=== PATIENT | female | born 1940 | race Caucasian/White ===

== ENCOUNTER 2019-10-13 09:03 | Inpatient (IN) | payer MEDICARE ==
[~2019-10-13] VITALS: Ht 152.4 cm; Wt 40.8 kg
[2019-10-13] MEDS ORDERED: ONDANSETRON HCL INJ 2MG/ML 2ML 2 MG/ML VIAL IV STA (09:20)
[2019-10-13] MEDS ORDERED: ONDANSETRON HCL 4 MG ORAL DISINTEGRATING TAB ONE (09:26)
[2019-10-13] MEDS ORDERED: FAMOTIDINE 20 MG/2 ML VIAL IV STA (09:49)
[2019-10-13 09:57] LABS: BASOPHILS % 0.2 % (0.0-1.0); EOSINOPHILS # (AUTO) 0.1 (0.0-0.4); EOSINOPHILS % 0.6 % (0.0-6.0); HEMATOCRIT 38.2 % (34.2-44.1); HEMOGLOBIN 11.9 g/dL (12.0-16.0); LYMPHOCYTES # (AUTO) 1.9 (1.0-3.2); LYMPHOCYTES % 10.3 % (18.0-39.1); MEAN CORPUSCULAR HGB CONC 31.2 g/dL (31-35); MEAN CORPUSCULAR VOLUME 93.2 fL (81-99); MONOCYTES # (AUTO) 1.5 (0.2-0.8); MONOCYTES % 8.3 % (4.4-11.3); NEUTROPHILS # (AUTO) 14.9 (2.1-6.9); PLATELET COUNT 344 x10e3/uL (140-360); RED CELL DISTRIBUTION WIDTH 14.4 % (11.7-14.4)
[2019-10-13 10:18] LABS: ALANINE AMINOTRANSFERASE 8 IU/L (0-55); ALBUMIN/GLOBULIN RATIO 0.9 (0.8-2.0); ALKALINE PHOSPHATASE 114 IU/L (40-150); ANION GAP 17.1 mmol/L (8-16); BLOOD UREA NITROGEN 20 mg/dL (7-26); BUN/CREATININE RATIO 27 (6-25); CALCIUM 9.4 mg/dL (8.4-10.2); CARBON DIOXIDE 23 mmol/L (22-29); CHLORIDE 100 mmol/L (98-107); CREATININE, SERUM 0.74 mg/dL (0.57-1.11); EST GLOMERULAR FILTRATION RATE > 60 ML/MIN (60-); GLUCOSE 150 mg/dL (74-118); POTASSIUM 4.1 mmol/L (3.5-5.1); SODIUM 136 mmol/L (136-145)
--- NOTE | 2019-10-13 10:50 | Diagnostic Imaging Report ---
Abdomen, 1 view, with upright chest. History: Epigastric and chest pain. Findings: Cardiac silhouette and pulmonary vessels are normal. Linear opacities are present at the lung bases. A rounded lucency is present in the retrocardiac region with contrast. There appears to be air filled dilatation of the esophagus. Surgical clips are noted in the left region. Right humeral neck fracture is partially visualized. Air is scattered throughout nondilated small and large bowel. There are no air-fluid levels. There is no evidence of free air. There are no masses or abnormal calcifications. The osseous structures are intact. IMPRESSION: 1. Bibasilar atelectasis. 2. Air-filled dilated esophagus with retained contrast. Distal esophageal partial obstruction or hernia may be present. 3. Partially visualized right humeral neck fracture. Signed by: Seth Juarez on 10/13/2019 10:47 AM
[2019-10-13] MEDS ORDERED: SODIUM CHLORIDE 0.9% 1000ML 1,000 ML IV ONE (12:00)
[2019-10-13] MEDS ORDERED: MORPHINE SULFATE 2 MG/ML SYR 1ML IV ONE (15:18)
--- NOTE | 2019-10-13 15:20 | Diagnostic Imaging Report ---
CT scan of the chest with pulmonary embolism protocol. Clinical History: ^Elevated D-Dimer SOB, rule out PE ^[id number] ^1400. Comparison Study: Chest x-ray dated October 13, 2019. Technique: Pre-intravenous contrast localization images were acquired followed by contiguous helical slices through the thorax post administration of intravenous contrast using a timed bolus fashion. This exam was performed according to our department dose optimization program which includes automated exposure control, adjustment of the mA and/or kV according to the patient's size and/or use of iterative reconstruction technique. Findings: There is no evidence of pulmonary embolism. The mediastinum is unremarkable with no suspicious masses or adenopathy. Some dilatation of the pulmonary arteries is noted. There is a moderate hiatal hernia. A trace right pleural effusion is seen. The visualized portions of the upper abdomen demonstrate a 9 mm adrenal adenoma. Diverticulosis is noted. The tracheobronchial tree is clear with no endobronchial lesions. The pulmonary parenchyma demonstrates moderate emphysematous changes. Bibasilar atelectasis or consolidation is seen. Bone windows demonstrate age-indeterminate high-grade compression fracture at L1. Post vertebroplasty changes are seen at T12. Impression: 1. No evidence of pulmonary embolism. 2. Bibasilar atelectasis or consolidation. A trace left pleural effusion is seen. 3. Moderate hiatal hernia. 4. Post vertebroplasty changes at T12 with high-grade compression fracture at L1. 5. Moderate emphysema. Signed by: Mynor Sierra MD on 10/13/2019 3:17 PM
[2019-10-13] MEDS ORDERED: MAGNESIUM/ALUMINUM/SIMETHICONE 30 ML UDC PO ONE (15:30)
[2019-10-13] MEDS ORDERED: SUCRALFATE 1 GM/10 ML SUSP NG ONE (15:30)
[2019-10-13] MEDS ORDERED: LIDOCAINE VISC 2% SOLN 15 ML UDC PO ONE (15:30)
[2019-10-13] MEDS ORDERED: ASPIRIN 81 MG CHEW TAB PO ONE ×2 (15:30→16:30)
[2019-10-13 15:41] LABS: CREATINE KINASE MB 3.1 ng/mL (0-5.0)
[2019-10-13] MEDS ORDERED: ENOXAPARIN SODIUM INJ 100 MG/ML SYR SC SCH (16:30)
[2019-10-13] MEDS ORDERED: NITROGLYCERIN 0.4 MG SUBL SL PRN (16:30)
[2019-10-13] MEDS ORDERED: FAMOTIDINE 20 MG TAB PO SCH (16:30)
[2019-10-13] MEDS ORDERED: SODIUM CHLORIDE FLUSH 10 ML SYR INJ PRN (16:30)
[2019-10-13] MEDS ORDERED: METOPROLOL SUCCINATE 25 MG TAB XL PO ONE (16:45)
[2019-10-13] MEDS: FAMOTIDINE 20 MG TAB PO SCH (17:41)
[2019-10-13] MEDS: ENOXAPARIN SOD INJ 40 MG/0.4 ML SYR SC SCH (17:42)
[2019-10-13 18:18] LABS: CLARITY,URINE SL CLOUDY (CLEAR); COLOR,URINE YELLOW (YELLOW); LEUKOCYTE ESTERASE ,URINE NEGATIVE (NEGATIVE); NITRITE,URINE NEGATIVE (NEGATIVE); PROTEIN,URINE DIPSTICK TRACE (NEGATIVE); URINE UROBILINOGEN 0.2 mg/dL (0.2 - 1)
[2019-10-13 18:19] LABS: BILIRUBIN,URINE NEGATIVE (NEGATIVE); KETONES,URINE NEGATIVE (NEGATIVE)
[2019-10-13] MEDS ORDERED: SODIUM CHLORIDE 0.9% 50ML 50 ML ONE (18:20)
[2019-10-13] MEDS ORDERED: IOPAMIDOL 370 MG/ML 200 ML INFUS..BTL INJ ONE (18:20)
[2019-10-13 18:37] LABS: BACTERIA,URINE FEW /HPF; EPITHELIAL CELLS,URINE MODERATE /LPF
[2019-10-13 18:43] LABS: CREATINE KINASE MB 5.2 ng/mL (0-5.0)
--- NOTE | 2019-10-13 19:27 | NUR ---
dr hernandez rounding on patient, discussed rising of troponin to 1.16 with md, no further orders at this time, patient in no distress
[2019-10-13] MEDS ORDERED: ATORVASTATIN 20 MG TAB PO SCH (19:45)
[2019-10-13] MEDS: ATORVASTATIN 40 MG TAB PO SCH (20:42)
[2019-10-13] MEDS: METOPROLOL TARTRATE 25 MG TAB PO SCH (20:42)
--- NOTE | 2019-10-13 21:44 | Consultation ---
DATE OF CONSULTATION: 10/13/2019 Cardiology Consultation CONSULTING PHYSICIAN: David Hill MD, Interventional Cardiology. REASON FOR CONSULTATION: Non-STEMI. HISTORY OF PRESENT ILLNESS: Ms. Parkinson is a 79-year-old woman with history of diabetes mellitus, COPD, cachexia, history of lip cancer status post tumor resection, and status post T12 level kyphoplasty two days ago, history of hiatal hernia, history of carotid disease status post left carotid endarterectomy, presents with chest discomfort since yesterday, constant, which she attributes to her usual symptoms from hiatal hernia. She has had recurrent previous episodes. Her EKG shows sinus rhythm, nonspecific repolarization abnormality. Her serial cardiac biomarkers, however, demonstrate troponin of 0.45 and then 1.16, ruling her in for non-STEMI. D-dimer was significantly elevated and a CT chest was performed and negative for pulmonary embolism. It did show bibasilar atelectasis or consolidation, trace left pleural effusion, moderate hiatal hernia, and post vertebroplasty changes to T12 with high-grade compression fracture at L1 and there are moderate emphysematous changes. There is also a 9-mm adrenal adenoma and diverticulosis noted. She reports previous coronary angiograms without significant obstructive disease. REVIEW OF SYSTEMS: A 12-system review is negative except for as noted above. ALLERGIES: TO TRAMADOL. PAST MEDICAL HISTORY: As per HPI. SOCIAL HISTORY: History of smoking, remote. No alcohol. No drugs. FAMILY HISTORY: Noncontributory. PHYSICAL EXAMINATION: VITAL SIGNS: Temperature 97.8, heart rate 95, respiratory rate 20, blood pressure 128/95, and O2 saturation 96%. GENERAL: In no acute distress, alert. NECK: No JVD. No carotid bruit. Left carotid endarterectomy scar. CHEST: With scattered rhonchi. CARDIOVASCULAR: Regular rate and rhythm. Normal S1, S2. No S3 or S4. No murmurs, no rubs. ABDOMEN: Soft and nontender. Bowel sounds positive. EXTREMITIES: No edema. Warm distal extremities. Cachectic. Frail-appearing, chronically ill-appearing. CARDIOVASCULAR MEDICATIONS: Reviewed. Lovenox 40 mg subcu q.12 hours, aspirin 81 mg daily, nitroglycerin 0.4 mg p.r.n.. STUDIES: Reviewed. White blood cells 18.6, hemoglobin 11.9, platelets 344. D-dimer 1260, peak troponin 1.16, CK-MB 5.2, CK 43. Sodium 136, potassium 4.1, chloride 100, bicarbonate 23, BUN 20, creatinine 0.7, total protein 6.4, albumin 3. ASSESSMENT AND PLAN: 1. A 79-year-old woman presents with non-ST elevation myocardial infarction, status post recent kyphoplasty. History of chronic obstructive pulmonary disease, hypertension, carotid disease status post left carotid endarterectomy, and diabetes mellitus, history of hiatal hernia. Has atypical chest pain described as worse with deep inspiration. Chronic recurrent onset since yesterday a.m. Recommend continue aspirin and Lovenox therapy. 2. Add statin. 3. Add low-dose beta-kateryna. 4. Discussed indications, alternatives, risks, and benefits for coronary angiography and possible intervention. Plan for angiographic assessment prior to discharge. We will confirm label fuser tender availability tomorrow a.m. and provide further recommendations. Obtain echocardiogram. Thank you for the opportunity to participate in the care Ms. Parkinson. MD LUCIA Mclean/JOHN /[id number]
[2019-10-13 23:32] VITALS: BP 118/81
[2019-10-13 23:48] VITALS: BP 111/65
[2019-10-14] VITALS (7 sets, daily range): BP systolic 108–125; BP diastolic 60–66
[2019-10-14] MEDS: MORPHINE SULFATE 2 MG/ML SYR 1ML IV PRN ×4 (00:05→22:34)
[2019-10-14] MEDS: DEXTROSE 5%/0.45% SOD CHL 1,000 ML IV SCH (00:52)
[2019-10-14 01:00] LABS: CREATINE KINASE MB 4.6 ng/mL (0-5.0)
--- NOTE | 2019-10-14 03:05 | NUR ---
TROPONIN LEVEL OF 1.130 WAS REPORTED BY LAB AT 0114. DR. PRIETO WAS CALLED TROUGH THE ANSWERING SERVICE TO REPORT VALUE AT 0121. THE HAS NOT CALLED BACK. I DID NOT CALL AGAIN HE WAS ALREADY AWARE OF PREVIOUS RESULT OF 1.165 EARLIER. PATIENT IS LAYING COMFORTABLY, IN NO DISTRESS. TELEMETRY IN PLACE, CURRENTLY SR.
[2019-10-14] MEDS ORDERED: ASPIR 8181 MG (04:44)
[2019-10-14] MEDS ORDERED: LEVOTHYROXINE75 MCG PO (04:44)
[2019-10-14] MEDS ORDERED: MULTIVITAMINS1 EAC7 (04:44)
[2019-10-14] MEDS ORDERED: PREDNISONE5 MG (04:44)
[2019-10-14] MEDS ORDERED: AMLODIPINE BESY10 MG PO (04:44)
[2019-10-14] MEDS ORDERED: LISINOPRIL40 MG (04:44)
[2019-10-14] MEDS ORDERED: ATORVASTATIN CA20 MG PO (04:44)
--- NOTE | 2019-10-14 05:16 | History and Physical ---
CHIEF COMPLAINT: Chest pain. HISTORY OF PRESENT ILLNESS: 79-year-old lady, who presented to the emergency room department complaining of chest pain of 1 day duration, quite constant, which she thought was related to her hiatal hernia. The patient has been somewhat nauseated. No vomiting. She denies shortness of breath. She has lost some weight. There is no history of rectal bleeding. No changes in bowel habits. No constipation. No diarrhea. The patient was noted to have positive cardiac biomarkers, which showed elevated troponin values which did go up from 0.5 to 1.16. Pulmonary embolism was ruled out and Cardiology consultation has been requested. The patient was noted to have elevated d-dimer. 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 Stated that flap from right thigh was used as a graft for reconstruction. Denies history of myocardial infarction. No cerebrovascular accident. No history of compulsive disorders. There is a history of osteoporosis and thyroiditis. History of hypertension PAST SURGICAL HISTORY: Previous left carotid endarterectomy, previous kyphoplasty done at T12. FAMILY HISTORY: No family history of gallbladder or hypertension Home medications: Aspirin, amlodipine, atorvastatin, levothyroxine, lisinopril, prednisone, multivitamins SOCIAL HISTORY: History of smoking. No alcohol or drug use. ALLERGIES: ALLERGIC TO TRAMADOL. REVIEW OF SYSTEMS: Except from what was mentioned above, 12-system review was essentially negative. PHYSICAL EXAMINATION: GENERAL: The patient appeared to be in no distress. VITAL SIGNS: Blood pressure 128/95, temperature 97.8, heart rate 95, respirations 20, and O2 saturation 96%. Physical examination: Patient alert oriented person time place. The patient was in no distress. The patient does not look well-nourished. Fragile elderly HEENT: No gross abnormalities Neck: Supple no JVD Lungs: Clear to auscultation Heart: Regular rate and rhythm, no murmurs no gallops Abdomen: Soft non tender, no guarding. Extremities: No edema Neurologic: Alert oriented 3, no focal weakness. Psychiatrist: Normal mood, normal judgment. Skin: No rashes LABORATORY DATA: Hemoglobin 11.9, white blood cell count 18.6, platelet count 344,000. D-dimer 1260. Troponins 1.16. Sodium 136, potassium 4.1, chloride 100, BUN 20, and creatinine 0.7. EKG demonstrated no acute process. No acute ischemia. Normal sinus rhythm. Rate 71. Nonspecific ST segment/T wave abnormalities. Normal QT and QT interval CT scan of the chest Impression: 1. No evidence of pulmonary embolism. 2. Bibasilar atelectasis or consolidation. A trace left pleural effusion is seen. 3. Moderate hiatal hernia. 4. Post vertebroplasty changes at T12 with high-grade compression fracture at L1. 5. Moderate emphysema. KUB: MPRESSION: 1. Bibasilar atelectasis. 2. Air-filled dilated esophagus with retained contrast. Distal esophageal partial obstruction or hernia may be present. 3. Partially visualized right humeral neck fracture. ASSESSMENT: 1. Chest pain in the patient with elevated troponin values. The patient has been admitted with an impression of non-ST segment elevation myocardial infarction. 2. Acute gastritis. No alcohol gastritis or hemorrhagic gastritis. 3. Hiatal hernia. 4. History of hypertension 5. Right humeral neck fracture, partially visualized 6. Leukocytosis 7. Status post left carotid endarterectomy. 8. Status post kyphoplasty. 9. History of COPD PLAN OF CARE: The patient will be admitted for further evaluation and treatment. Cardiology recommendations noted. Small doses of beta-blockers have been ordered. Patient placed on Lovenox. Angiogram is being planned Consult GI for evaluation. Consulted. Pertaining questionable right humeral neck fracture MD ANTONY Saucedo/JOHN /[id number] MOUNA
[2019-10-14] MEDS: ENOXAPARIN SOD INJ 40 MG/0.4 ML SYR SC SCH ×3 (05:35→18:00)
[2019-10-14 05:42] LABS: BASOPHILS % 0.2 % (0.0-1.0); EOSINOPHILS # (AUTO) 0.1 (0.0-0.4); EOSINOPHILS % 0.5 % (0.0-6.0); HEMATOCRIT 35.9 % (34.2-44.1); LYMPHOCYTES # (AUTO) 2.1 (1.0-3.2); LYMPHOCYTES % 11.7 % (18.0-39.1); MEAN CORPUSCULAR HEMOGLOBIN 28.9 pg (28-32); MEAN CORPUSCULAR HGB CONC 30.6 g/dL (31-35); MEAN CORPUSCULAR VOLUME 94.2 fL (81-99); MONOCYTES # (AUTO) 1.8 (0.2-0.8); NEUTROPHILS # (AUTO) 13.8 (2.1-6.9); PLATELET COUNT 308 x10e3/uL (140-360); RED BLOOD COUNT 3.81 x10e6/uL (3.6-5.1); RED CELL DISTRIBUTION WIDTH 14.3 % (11.7-14.4)
[2019-10-14 05:53] LABS: INR 0.98; PROTHROMBIN TIME 13.5 seconds (11.9-14.5)
[2019-10-14 05:54] LABS: PARTIAL THROMBOPLASTIN TIME 38.3 seconds (23.8-35.5)
[2019-10-14 06:04] LABS: ANION GAP 14.5 mmol/L (8-16); BLOOD UREA NITROGEN 16 mg/dL (7-26); BUN/CREATININE RATIO 21 (6-25); CARBON DIOXIDE 24 mmol/L (22-29); CHLORIDE 101 mmol/L (98-107); CHOL/HDL RATIO 5.1 (3.0-3.6); CHOLESTEROL 167 MD/DL (0-199); CREATININE, SERUM 0.76 mg/dL (0.57-1.11); EST GLOMERULAR FILTRATION RATE > 60 ML/MIN (60-); GLUCOSE 166 mg/dL (74-118); HDL CHOLESTEROL 33 MG/DL (40-60); LDL CHOLESTEROL 88 MG/DL (60-130); MAGNESIUM 1.3 MG/DL (1.3-2.1); PHOSPHORUS 2.5 MG/DL (2.3-4.7); POTASSIUM 4.5 mmol/L (3.5-5.1); SODIUM 135 mmol/L (136-145); TRIGLYCERIDES 229 MG/DL (0-149)
--- NOTE | 2019-10-14 07:07 | NUR ---
Dr. Reed just returned the call I placed to report the troponin level. He order to let the patient have breakfast this morning and then keep her NPO afterwards with current fluid rate. To consent the patient for a coronary stent and other necessary procedures.
--- NOTE | 2019-10-14 07:10 | NUR ---
RCD PT AT BED PT IS ALERT AND ORIENTED PT RESTING ON BED IV PATENT BY SALINE FLUSH BED LOW AND LOCKED CALL LIGHT IN REACH
[2019-10-14] MEDS: FAMOTIDINE 20 MG TAB PO SCH ×2 (07:30→16:30)
[2019-10-14] MEDS: METOPROLOL TARTRATE 25 MG TAB PO SCH ×2 (07:45→19:45)
[2019-10-14 08:20] LABS: CREATINE KINASE MB 3.7 ng/mL (0-5.0)
--- NOTE | 2019-10-14 08:30 | NUR ---
PT NPO FOR PROCEDURE
[2019-10-14] MEDS ORDERED: ASPIRIN 81 MG ENTERIC COATED PO SCH (09:00)
--- NOTE | 2019-10-14 10:00 | NUR ---
PT SAID SHE CAN SIGN THE CONSENT AFTER TALKING TO THE DOCTOR PAGED AND NOTIFIED DR SWEENEY HE SAID HE COMING TO SEE THE PT
[2019-10-14] MEDS: ONDANSETRON HCL INJ 2MG/ML 2ML 2 MG/ML VIAL IV PRN ×2 (14:34→22:34)
--- NOTE | 2019-10-14 15:39 | NUR ---
Nutrition Intervention Note RD Recommendation(s) for Physician: -Advance diet when medically appropriate -Glucerna daily for added nutrition The patient meets criteria for unspecified SEVERE protein-calorie malnutrition. Plan of Care: RD following, monitoring for tolerance and adequacy Nutrition reason for involvement: MST RD Assessment (10/14/19) Pt is a 79 year old female admitted with elevated troponin and leukocytosis. Pt is currently NPO. Pt stated her appetite has been down and eating <50% of meals for the past 2 weeks. Pt also reports a 15 lb wt loss in the past 3-4 months and used to weigh 105 lbs. Pt currently has a wt of 90 lbs in chart. If accurate, this would be a 14% wt loss in 3-4 months severe wt loss. No N/V/D/C reported at this time. Pt also mentioned she drinks a nutrition supplement drink daily at home and eats soft vegetables and pureed meats. Pt was interested in receiving a nutrition supplement drink daily during admission. Will continue to monitor Principal Problems/Diagnoses: elevated troponin, leukocytosis PMH: diabetes, COPD, cachexia, tongue cancer, hiatal hernia, and carotid disease GI: soft, non-tender, abdomen, BM unknown Skin: no pressure ulcers noted Labs: (10/14/19) Na 135, Glu 166 Meds: zofran, metroprolol, pepcid, lovenox, lipitor Ht: 60 inches Wt: 90 lbs BMI: 17.6 kg/m2 IBW: 106 lbs Malnutrition Evaluation (10/14/19) The patient meets criteria for unspecified SEVERE protein-calorie malnutrition. Energy intake: <50% of estimated energy requirements for >5 days Weight loss: >7.5% in 3 months (Chronic) Muscle loss: Moderate clavicle region Supporting Evidence: Fluid accumulation: no accumulation identified Functional Status: unable to evaluate Nutrition Prescription (Diet Order): NPO Estimated Nutritional Needs: 9046-0520 calories/day (30-35 kcal/kg CBW) 61-82 g protein/day (1.5-2 g pro/kg CBW) Diet Adequacy: Pt is NPO Tolerance: Pt is NPO Diet Education Needs Assessment: Diet education is not indicated at this time Nutrition Care Level: high Nutrition Diagnosis: Severe protein kcal malnutrition related to chronic illness as evidenced by pt meeting <50% of energy needs for > 5 days, >7.5% weight loss in 3 months, and moderate muscle depletion. Goal: Patient will meet 75-100% of estimated needs by follow up Progress: N/A Interventions: Commercial beverage Monitoring/Evaluation: -Total energy intake, Total protein intake, Liquid supplement, Weight change Signed: Yecenia Taylor RD, LD
[2019-10-14] MEDS ORDERED: HEPARIN SOD (PORCINE) 1000 UNIT/ML 30ML ONE (15:51)
[2019-10-14] MEDS ORDERED: MIDAZOLAM HCL 2 MG/2 ML VIAL ONE (15:51)
[2019-10-14] MEDS ORDERED: FENTANYL CITRATE/PF 100MCG/2 ML INJ ONE (15:52)
[2019-10-14] MEDS ORDERED: HEPARIN SOD/SOD CHLORIDE 0 ML ONE (15:52)
[2019-10-14] MEDS ORDERED: IOPAMIDOL 370 MG/ML 200 ML INFUS..BTL INJ ONE (15:52)
[2019-10-14] MEDS ORDERED: LIDOCAINE HCL 2% LOCAL 20 ML VIAL ONE (15:52)
[2019-10-14] MEDS ORDERED: SODIUM CHLORIDE 0.9% 1000ML 0 ML ONE (15:53)
[2019-10-14] MEDS ORDERED: VERAPAMIL HCL 2.5 MG/ML 2 ML VIAL ONE (15:58)
[2019-10-14] MEDS ORDERED: NITROGLYCERIN/D5W 200 MCG/ML 250 ML ONE (15:58)
--- NOTE | 2019-10-14 16:10 | NUR ---
PT WENT TO THE PROCEDURE THEN PT REFUSED THE PROCEDURE DR SWEENEY EXPLAINED THE COMPLICATIONS IF NOT DOING THE PROCEDURE PT SAID NO
--- NOTE | 2019-10-14 17:00 | NUR ---
DR SWEENEY WANTED TO TRANSFER THE PT TO HER [facility] ,NOTIFIED THE CHARGE NURSE AND [employer]AM[employer] EXPERT CHARGE NURSE PAGED AND TALKED TO THE ANSWERING SERVICE THEY SAID THE ONCALL DR ONTIVEROS RETURNED THE CALL
--- NOTE | 2019-10-14 17:00 | NUR ---
DR CHAVARRIA EXPLAINED TO THE PT AND FAMILY REGARDING INCREASED CARDIAC ENZYME ,ECHO REPORT AND THE COMPLICATIONS TO DISCHARGE WITHOUT DOING THE PROCEDURE [facility] THEY REFUSED TO DO THE PROCEDURE
--- NOTE | 2019-10-14 19:14 | NUR ---
PT RESTING ON BED BED SIDE REPORT GIVEN TO ONCOMING NURSE
--- NOTE | 2019-10-14 19:20 | NUR ---
Received bedside report from day nurse. Informed of situation regarding patient refusing prosthetics lab technician procedure today because she would prefer her primary type photography supervisor, Dr. Eddie Dominguez, to take care of her. Patient's family aware of situation and was here to speak with patient. Patient still refusing. Contacted Dr. Dominguez and spoke with on-call provider, Dr. Montes De Oca. Informed him of situation and patient's elevated troponin. Dr. Montes De Oca said he will speak with Dr. Dominguez about possible transfer to [facility] and call back. Awaiting return call at this time. Patient currently resting in bed, no s/s of distress or c/o pain at this time. All safety measures in place. Will continue to monitor.
--- NOTE | 2019-10-14 19:42 | NUR ---
Received return call from Dr. Montes De Oca, the on-call provider for Dr. Eddie Dominguez, patient's primary and preferred blasting helper. Informed by Dr. Montes De Oca that Dr. Dominguez is aware of situation and is okay with accepting patient at [facility]. Called medical housekeeper to initiate transfer process. Dr. Shakira Bruce here to see patient. Patient still resting in bed, no s/s of distress at this time. All safety measures in place. Will continue to monitor.
--- NOTE | 2019-10-14 19:43 | NUR ---
Per Dr. Shakira Bruce, patient okay to transfer to [facility].
[2019-10-14] MEDS: ATORVASTATIN 40 MG TAB PO SCH (21:04)
--- NOTE | 2019-10-14 21:13 | NUR ---
Per housekeeper home, no bed is available at [facility]. Paged Dr. Rosenberg and Dr. Reed to inform them of situation. Awaiting return call. Patient informed of situation. In stable condition, no s/s of distress at this time. All safety measures in place. Will continue to monitor.
--- NOTE | 2019-10-14 21:22 | NUR ---
Informed Dr. Rosenberg regarding no bed being available at [facility]. Received orders to consult Dr. Kapoor for right shoulder fracture. Patient in stable condition, resting in bed, no s/s of distress at this time. All safety measures in place. Will continue to monitor.
--- NOTE | 2019-10-14 21:39 | Progress Note ---
DATE: 10/14/2019 Cardiology Progress Note SUBJECTIVE: Adrienne continues to have bouts of intermittent chest discomfort. She has been advised she had a vjr-IW-[id number] myocardial infarction, and that her echocardiogram is severely abnormal with left ventricular ejection fraction of less than 20% and regional wall motion abnormalities involving septal, lateral and anterior faulkner of the mid LV as well as all apical segments with akinesis of the segments. She has a previous echocardiogram several years ago, which at that time was reported as preserved left ventricular systolic function. Coronary angiogram and left heart catheterization with possible coronary intervention have been discussed with the patient on multiple occasions. The patient strongly encouraged to proceed with this, however, she wants to avoid proceeding. Indications, alternatives, risks, and benefits have been discussed with the patient in presence of kiln labourer staff as well as with nursing staff. The patient voices understanding of increased risk of , worsening condition, heart attack and worsening heart failure and other potential risks. The patient voices understanding. However, she is adamant. She would like to follow up with her own watch assembler. I have told her this is in my opinion unsafe for her to discharge given her severe abnormal findings and have instead advised as an alternative to consider a lateral transfer if she is able to obtain acceptance of transfer from her own watch assembler. OBJECTIVE: VITAL SIGNS: Temperature 98.4, heart rate 77, respiratory rate 20, blood pressure 125/66, O2 saturation 97% on 2 L/minute nasal cannula. GENERAL: No acute distress. Cachectic, chronically ill-appearing. HEENT: Has slurred speech related to previous head and neck cancer surgery. NECK: No JVD. Has carotid endarterectomy scar. CHEST: Clear to auscultation. CARDIOVASCULAR: Regular rate and rhythm. Normal S1, S2. Systolic ejection murmur. ABDOMEN: Soft, nontender. EXTREMITIES: No edema. Warm distal extremities. CARDIOVASCULAR MEDICATIONS: Lovenox 40 mg subcu every 12 hours, aspirin 81 mg daily, metoprolol tartrate 12.5 mg every 12 hours, atorvastatin 40 mg at bedtime, and nitroglycerin p.r.n. STUDIES: Reviewed. White blood cells 17.8, hemoglobin 11, platelets 308. PT 13.5, INR 0.98, PTT 38.3. D-dimer was elevated initially on yesterday's labs. Sodium 135, potassium 4.5, chloride 101, bicarbonate 24, BUN 16, creatinine 0.76, glucose 166, calcium 9, magnesium 1.3 to be repleted, phosphorus 2.5. Troponin I trend has been downwards today. Peak troponin was 1.165 with a peak CK-MB of 5.2. Her a.m. labs today include a CK of 39, CK-MB of 3.7, and troponin I of 0.998. Triglycerides 229, total cholesterol 167, LDL 88, HDL 33. ASSESSMENT AND PLAN: 1. A 79-year-old woman presents with [id number] myocardial infarction, acute severe systolic heart failure with regional wall motion abnormalities concerning for left main and/or LAD disease/multivessel disease versus takotsubo cardiomyopathy. 2. Cachexia and frailty. 3. The patient is status post recent kyphoplasty. 4. Chronic obstructive pulmonary disease. 5. Hypertension. 6. Carotid artery disease, status post left carotid endarterectomy. 7. Diabetes mellitus. 8. History of hiatal hernia. RECOMMENDATIONS: Coronary angiography and possible intervention. Continue current cardiovascular medications. The patient declines coronary angiography and intervention as described above. Continue current medical management and I have advised on lateral transfer if the patient is able to get acceptance from her outpatient treating watch assembler, which she would like to follow up with for further decisions including possible invasive assessment. Risk of and morbidity have been discussed. MD LUCIA Mclean/JOHN /[id number]
--- NOTE | 2019-10-14 22:10 | NUR ---
Called Dr. Kapoor's office to inform him of routine consult for right shoulder fracture. Informed that Dr. Kapoor will see patient tomorrow morning.
--- NOTE | 2019-10-14 22:21 | NUR ---
Spoke with Dr. Montes De Oca, the on-call provider for Dr. Gregg Dominguez, patient's primary and preferred pleating machine operator, regarding inability to transfer patient to [facility] due to no bed being available at this time. Per Dr. Montes De Oca, have Dr. Reed call Dr. Dominguez's office in the morning to discuss further plans. Per Dr. Montes De Oca, their office will also be in touch with patient and family to discuss further plans. Patient in stable condition at this time, no s/s of distress. All safety measures in place. Will continue to monitor.
[2019-10-15] VITALS (11 sets, daily range): BP systolic 101–142; BP diastolic 61–86
--- NOTE | 2019-10-15 00:19 | Progress Note ---
DATE: 10/14/2019 SUBJECTIVE: The patient was doing fine. The patient has been in no distress. She still having some discomfort on the chest. The patient has been advised about need to have a cardiac catheterization, however, she would like to be transferred to the hospital for Cardiology . OBJECTIVE: GENERAL: The patient is alert and oriented to person, time, and place. The patient is in no distress. VITAL SIGNS: Stable vital signs. Blood pressure 116/63, respirations 24, pulse 84, temperature 97.3. HEENT: Normocephalic and atraumatic. NECK: Supple. No JVD. . LUNGS: Clear to auscultation. CARDIOVASCULAR: Regular rate and rhythm. ABDOMEN: Soft and nontender. EXTREMITIES: No edema. NEURO: Nonfocal. LABORATORY DATA: CBC reveal hemoglobin 11.9, white blood cell count 18.62, platelet count 344,000. Chemistry profile reveal sodium 135, potassium 4.5, chloride 101, CO2 24, BUN 16, creatinine 0.76. Laboratory data noted. Triglycerides 229, cholesterol 167, troponin value 0.998. ASSESSMENT: 1. Chest pain with elevated troponin values. As per EKG, the patient does have non-ST segment elevation myocardial infarction. 2. . 3. Right humeral neck fracture. 4. Leukocytosis. 5. Status post left carotid endarterectomy. 6. Status post kyphoplasty. 7. History of chronic obstructive pulmonary disease. PLAN OF CARE: Continue present care, consult Orthopedics pertaining to right humeral neck fracture. MD ANTONY Saucedo/JOHN /[id number]
--- NOTE | 2019-10-15 01:09 | NUR ---
Spoke with Dr. Reed and let him know that an attempt was made to transfer patient to [facility], but no bed is available. Informed him that patient's primary supervisor cured meats, Dr. Gregg Dominguez, will be in touch tomorrow morning to discuss further plan of care. Dr. Reed says that there is nothing else to discuss at this point since patient is refusing heart cath procedure. Dr. Montes De Oca, on-call provider for Dr. Dominguez, says they will discuss with patient and family. Patient was complaining of mild chest pain earlier, alleviated with PRN morphine and Zofran. No other s/s of distress noted otherwise at this time. All safety measures in place. Will continue to monitor.
[2019-10-15] MEDS: MORPHINE SULFATE 2 MG/ML SYR 1ML IV PRN ×4 (04:05→18:36)
[2019-10-15] MEDS: ONDANSETRON HCL INJ 2MG/ML 2ML 2 MG/ML VIAL IV PRN (04:05)
--- NOTE | 2019-10-15 04:20 | NUR ---
Patient says that she would like to go ahead and have procedure done here by Dr. Reed. Placed patient on NPO diet. Patient confirms that she has not had anything to eat or drink since midnight. Paged Dr. Reed to let him know. Awaiting return call. Patient resting in bed, no s/s of distress at this time. All safety measures in place. Will continue to monitor.
[2019-10-15] MEDS: ENOXAPARIN SOD INJ 40 MG/0.4 ML SYR SC SCH ×3 (05:34→19:03)
--- NOTE | 2019-10-15 05:56 | NUR ---
Informed Dr. Reed that patient would like to go ahead with procedure. Per Dr. Reed, hold Lovenox and put patient on schedule. Patient resting in bed, no s/s of distress at this time. All safety measures in place. Will continue to monitor.
[2019-10-15] MEDS: DEXTROSE 5%/0.45% SOD CHL 1,000 ML IV SCH ×2 (06:06→14:49)
--- NOTE | 2019-10-15 06:12 | NUR ---
Per patient request, called daughter and let her know about scheduled procedure.
--- NOTE | 2019-10-15 07:13 | NUR ---
Bedside report given to oncoming nurse. Patient awake and resting in bed, no s/s of distress at this time. All safety measures in place.
[2019-10-15] MEDS ORDERED: VERAPAMIL HCL 2.5 MG/ML 2 ML VIAL ONE (08:36)
[2019-10-15] MEDS ORDERED: HEPARIN SOD (PORCINE) 1000 UNIT/ML 30ML ONE (08:36)
[2019-10-15] MEDS ORDERED: LIDOCAINE HCL 2% LOCAL 20 ML VIAL ONE (08:37)
[2019-10-15] MEDS ORDERED: MIDAZOLAM HCL 2 MG/2 ML VIAL ONE (08:37)
[2019-10-15] MEDS ORDERED: FENTANYL CITRATE/PF 100MCG/2 ML INJ ONE (08:37)
[2019-10-15] MEDS ORDERED: NITROGLYCERIN/D5W 200 MCG/ML 250 ML ONE (08:38)
[2019-10-15] MEDS ORDERED: HEPARIN SOD/SOD CHLORIDE 2,000 ML ONE (08:38)
[2019-10-15] MEDS ORDERED: IOPAMIDOL 370 MG/ML 200 ML INFUS..BTL INJ ONE (08:38)
--- NOTE | 2019-10-15 08:40 | NUR ---
Pt off unit at this time, escorted to laborer landscape via assistance x3.
[2019-10-15] MEDS ORDERED: ONDANSETRON HCL INJ 2MG/ML 2ML 2 MG/ML VIAL ONE (09:52)
--- NOTE | 2019-10-15 10:30 | NUR ---
Dr. Rosenberg notified regarding pt transfer per Dr. Reed.
--- NOTE | 2019-10-15 10:30 | NUR ---
Spoke to bathhouse attendant Ghassan. States he will initiate the transfer to [facility].
[2019-10-15] MEDS ORDERED: MAGNESIUM SULFATE 2GM/50ML 50 ML IV ONE (11:00)
--- NOTE | 2019-10-15 12:23 | Progress Note ---
DATE: 10/15/2019 Cardiology Progress Note SUBJECTIVE: Intermittent chest pain. No other complaints. OBJECTIVE: VITAL SIGNS: Temperature 96.8, heart rate 80, respiratory rate 18, blood pressure 118/79, and O2 saturation 98% on 2 L/minute nasal cannula. Her body surface area is 1.33 m2. Her BMI 17.6 kg/m2. GENERAL: Cachectic, chronically ill-appearing. HEENT: Moist mucosa with mild deformation of tongue and left lip, chronic from prior history of head and neck cancer. NECK: JVD distended. CHEST: Clear to auscultation. CARDIOVASCULAR: Regular rate and rhythm. Normal S1, S2. No S3 or S4. Systolic ejection murmur. ABDOMEN: Soft, nontender. Bowel sounds positive. EXTREMITIES: No edema. Warm and distal extremities. CARDIOVASCULAR MEDICATIONS: Reviewed. Atorvastatin 40 mg at bedtime, aspirin 81 mg daily, metoprolol tartrate 12.5 mg every 12 hours, Lovenox on hold. Adding Lasix 40 mg daily. STUDIES: Reviewed. White blood cells 17.8, hemoglobin 11, and platelets 308. Sodium 135, potassium 4.5, chloride 101, bicarbonate 24, BUN 16, creatinine 0.7, glucose 132, magnesium 1.3, repleted. Calcium 9. Phosphorus 2.5. Troponin I from yesterday 0.99. CK-MB 3.7 and CK 39. Triglycerides 229, total cholesterol 167, LDL 88, HDL 33. Telemetry, sinus rhythm. ASSESSMENT AND PLAN: 1. Status post coronary angiography today. The patient did finally agree to proceed with this. I was confirmed ostial severe left main disease as well as LAD severe disease, moderate circumflex disease, mild RCA disease. LV-gram consistent with apical ballooning syndrome with regional wall motion abnormalities, more severe and out of proportion to level of coronary artery disease, suggesting concomitant takotsubo cardiomyopathy on top of severe left main and LAD disease. 2. Cachexia and frailty. 3. The patient is status post recent kyphoplasty. 4. Chronic obstructive pulmonary disease. 5. Hypertension. 6. Carotid disease, status post left endarterectomy. 7. Diabetes. 8. History of hiatal hernia. RECOMMEND: 1. Diuretics and replete lytes. 2. Continue anti-platelet agent and statin therapy. 3. Continue low-dose beta-kateryna. 4. Unable to add ELLIE inhibitor, ARB, or ARNI at this point in time given low normal blood pressure reads. 5. The patient would benefit from some nutrition optimization and rehab optimization prior to consideration of surgery. 6. The patient would benefit for surgery evaluation by cardiothoracic surgery for consideration of high risk bypass versus high risk of staged PCI of left main and LAD. The patient prefers care with her outpatient treating accounts payable accountant, who is at [facility]. We will request a higher level of care transfer for further evaluation by Cardiothoracic Surgery. 7. Overall, prognosis is guarded. David Hill MD AFCarlos/MODL /[id number]
--- NOTE | 2019-10-15 12:32 | NUR ---
Pt arrived on unit from tin can laborer via bed, assist x2. A&O x3, resp WNL. R fem site soft on palpation, dressing in place, CDI. Pt has no c/o pain. IV fluids being administered. Down time till 1630, pt aware for need to keep RLE straight.
--- OUTSIDE RECORDS SUMMARY | 2019-10-15 13:55 | XMS REPORT ---
Author Author [facility] Address Unknown Phone Unavailable Care Team Providers Care Orthopedic Specialist Name Role Phone Camila ESTRADA Unavailable Unavailable Problems This patient has no known problems. Allergies, Adverse Reactions, Alerts This patient has no known allergies or adverse reactions. Medications This patient has no known medications. Results Test Description Test Time Test Comments Text Results Atomic Results Result Comments CT CHEST W 2019-10-13 15:09:00 [place] [address] Patient Name: LIBERTAD MIKE MR #: [id number] : 1940 Age/Sex: 79/F Req #: [id number] Adm Physician: Ordered by: TREE ESTRADA MD Report #: [id number] Location: ER Room/Bed: Procedure: [id number] CT/CT CHEST W Exam Date: 10/13/19 Exam Time: 1400 REPORT STATUS: Signed CT scan of the chest with pulmonary embolism protocol. Clinical History: Elevated D-Dimer SOB, rule out PE [id number]. Comparison Study: Chest x-ray dated October 13, 2019. Technique: Pre- intravenous contrast localization images were acquired followed by contiguous helical slices through the thorax post administration of intravenous contrast using a timed bolus fashion. This exam was performed according to our department dose optimization program which includes automated exposure control, adjustment of the mA and/or kV according to the patient's size and/or use of iterative reconstruction technique. Findings: There is no evidence of pulmonary embolism. The mediastinum is unremarkable with no suspicious masses or adenopathy. Some dilatation of the pulmonary arteries is noted. There is a moderate hiatal hernia. A trace right pleural effusion is seen. The visualized portions of the upper abdomen demonstrate a 9 mm adrenal adenoma. Diverticulosis is noted. The tracheobronchial tree is clear with no endobronchial lesions. The pulmonary parenchyma demonstrates moderate emphysematous changes. Bibasilar atelectasis or consolidation is seen. Bone windows demonstrate age-indeterminate high-grade compression fracture at L1. Post vertebroplasty changes are seen at T12. Impression: 1. No evidence of pulmonary embolism. 2. Bibasilar atelectasis or consolidation. A trace left pleural effusion is seen. 3. Moderate hiatal hernia. 4. Post vertebroplasty changes at T12 with high-grade compression fracture at L1. 5. Moderate emphysema. Signed by: Mynor Sierra MD on 10/13/2019 3:17 PM Dictated By: MYNOR SIERRA MD 16 Transcribed By: BRINA on 10/13/191516 COPY TO: TREE ESTRADA MD ABDOMEN ACUTE SERIES W/PA CXR 2019-10-13 10:42:00 [place] [address] Patient Name: LIBERTAD MIKE MR #: [id number] : 1940 Age/Sex: 79/F Req #: [id number] Adm Physician: Ordered by: TREE ESTRADA MD Report #: [id number] Location: ER Room/Bed: Procedure: [id number] DX/ABDOMEN ACUTE SERIES W/PA CXR Exam Date: 10/13/19 Exam Time: 0953 REPORT STATUS: Signed Abdomen, 1 view, with upright chest. History: Epigastric and chest pain. Findings: Cardiac silhouette and pulmonary vessels are normal. Linear opacities are present at the lung bases. A rounded lucency is present in the retrocardiac region with contrast. There appears to be air filled dilatation of the esophagus. Surgical clips are noted in the left region. Right humeral neck fracture is partially visualized. Air is scattered throughout nondilated small and large bowel. There are no air-fluid levels. There is no evidence of free air. There are no masses or abnormal calcifications. The osseous structures are intact. IMPRESSION: 1. Bibasilar atelectasis. 2. Air-filled dilated esophagus with retained contrast. Distal esophageal partial obstruction or hernia may be present. 3. Partially visualized right humeral neck fracture. Signed by: Seth Juarez on 10/13/2019 10:47 AM Dictated By: SETH JUAREZ MD 1047 Transcribed By: BRINA on 10/13/19 1047 COPY TO: TREE ESTRADA MD
--- NOTE | 2019-10-15 14:14 | Operative Report ---
DATE OF PROCEDURE: 10/15/2019 SURGEON: David Hill MD STUDY: Cardiac catheterization. CRIMINAL JUSTICE LAWYER: David Hill MD, Interventional Cardiology. PROCEDURE INDICATION: Acute severe cardiomyopathy with apical ballooning pattern on echocardiogram, status post recent surgery in a patient with cachexia, frailty, malnutrition, deconditioning, and prior history of head and neck cancer, COPD, hypertension, peripheral arterial disease, mild CAD. Previously reported preserved left ventricular systolic function several years prior, as well as rat-[id number] myocardial infarction. PROCEDURES PERFORMED: 1. Left heart catheterization. 2. Selective coronary angiography. 3. Left main intravascular ultrasound assessment. 4. Manual pressure hemostasis to the right common femoral artery arteriotomy site. PROCEDURE COMPLICATIONS: None. ESTIMATED BLOOD LOSS: Less than 15 mL. PROCEDURE SUMMARY: After consent was obtained, the patient was prepped and draped in a sterile fashion. The right femoral site was locally infiltrated with 2% lidocaine and an access was obtained with micropuncture kit. A 6-Albanian sheath was placed. All catheters were railed to the proximal ascending aorta over leading wire. A JL4 6-Albanian catheter was used for engagement of left main. A JR4 6-Albanian catheter was used for engagement of right coronary artery. A pigtail catheter was used to cross the aortic valve for hemodynamic measurements. An XB LAD 3.0, 6-Albanian guide catheter was used for engagement of the left main for the intravascular ultrasound assessment. A run-through wire was advanced into the LAD distal and a [employer] OptiCross HD intravascular ultrasound was used to interrogate the left main for confirmation of severity of stenosis of ostial left main disease. FINDINGS: LV pressure is 127/14 with end-diastolic pressure of 25 to 29 and aortic pressure was 121/43. Left main has heavy calcifications by intravascular ultrasound. There is 69% stenosis by intravascular ultrasound and minimal luminal area is 4.88 mm of squared with ostial stenosis and minimal luminal diameter was 2.35 mm2. LV-gram reveals severe hypokinesis of all mid and apical segment of LV myocardium in apical ballooning pattern and LVEF was less than 20%. The bases are hyperkinetic. From the left main and the LAD and the circumflex on the right, the LAD has proximal 60% stenosis prior to giving a diagonal. Mid LAD has 70% calcific stenosis. First diagonal has 30% mid stenosis and is small in caliber. Additional septal perforators arise from the LAD are small in caliber. The circumflex arises from the left main and has 60% proximal stenosis prior to giving an obtuse marginal. The right coronary artery is dominant. It has two RV marginals and terminal RPDA and RPLV. The mid RCA has 40%, 30% and 30% tandem lesions. CONCLUSIONS: 1. Severe left main and ostial stenosis, calcific vessel confirmed by intravascular ultrasound, severe LAD stenosis, moderate circumflex stenosis, mild to moderate RCA stenosis, severe cardiomyopathy with distribution of regional wall motion abnormality concerning for apical ballooning/takotsubo pattern, which is more severe in proportion to level of coronary artery disease, particularly the inferior segments are akinetic and ballooning and not perfused by the left system concerning for component of takotsubo cardiomyopathy. Recommend manual pressure hemostasis and bedrest post sheath pull. 2. Nutrition and rehab condition/optimization. 3. Transferred to higher level care for CT surgery evaluation. 4. Continue medical optimization for heart failure including adding diuretic therapy. David Hill MD AFCarlos/MODL /[id number]
--- NOTE | 2019-10-15 16:35 | Progress Note ---
DATE: 10/15/2019 SUBJECTIVE: The patient is doing fine, however, having discomfort in the chest off and on. Denies nausea. Denies vomiting. No fever or chills. OBJECTIVE: GENERAL: The patient is alert and oriented to person, time, and place. The patient is in no distress. The patient is elderly, well nourished. VITAL SIGNS: Blood pressure 142/86, respirations 16, pulse 91, and temperature 98.9. HEENT: Normocephalic and atraumatic. NECK: Supple. No JVD. LUNGS: Clear to auscultation. HEART: Regular rate and rhythm. ABDOMEN: Soft and nontender. EXTREMITIES: No edema. NEUROLOGIC: Nonfocal. ASSESSMENT: 1. Non-ST segment elevation myocardial infarction. 2. Status post coronary angiography, which was done by Dr. Rede. The patient was noted to have severe coronary artery disease. The recommendations are for the patient to undergo high level of care, PCI or to undergo and consider coronary artery bypass surgery. evaluation by the patient's moisture meter reader. 3. Cachexia . 4. Chronic obstructive pulmonary disease. 5. Hypertension. 6. Status post left carotid endarterectomy. 7. Diabetes mellitus. 8. History of hiatal hernia. 9. Recent kyphoplasty. PLAN OF CARE: continue present medications. List of medications reviewed. MD ANTONY Saucedo/JOHN /[id number]
--- NOTE | 2019-10-15 19:12 | NUR ---
Received bedside report from day nurse. Patient awaiting transfer, resting in bed, no s/s of distress or c/o pain at this time. All safety measures in place. Will continue to monitor.
--- NOTE | 2019-10-15 19:37 | NUR ---
EMS here to transfer patient out via stretcher. Patient in stable condition, no s/s of distress at this time.
--- NOTE | 2019-10-16 01:48 | Consultation ---
DATE OF CONSULTATION: 10/15/2019 Pulmonary Critical Care Medicine Consult. REFERRING PHYSICIAN: Jef Rosenberg MD. REASON FOR REFERRAL: Critical coronary disease. HISTORY OF PRESENT ILLNESS: Ms. Parkinson is a pleasant 79-year-old female with critical coronary artery disease. The patient presented to [facility] on 10/13/2019. The patient had chest pain one day duration. The patient was having some nausea. However, she came hospital with some positive biomarkers from the heart demonstrating troponin 0.5. CT angiography was performed with mild cystic lung opacities, mostly clear lung parenchyma. The patient had no PE noted. The patient was having echocardiogram which demonstrated less than 20% LVEF with RVSP estimate 36 mm Hg with some regional wall motion abnormality. The patient went for left heart catheterization demonstrating 69% left main obstruction, LAD 60% 70%, left circumflex 60% obstruction, RCA 40%, which was dominant. At this point, the patient was sent back to floor on medical therapy. The patient already had consult pending for vascular assessment for coronary artery bypass grafting. I am consulted. PAST MEDICAL HISTORY: In April 2019, tongue cancer [facility] [place], status post partial surgical excision of tongue as well as flap from right thigh for reconstruction. No chemotherapy, no radiation. Hiatal hernia, osteoporosis, thyroiditis, hypertension, chronic bronchitis. PAST SURGICAL HISTORY: Left CEA, kyphoplasty at T12 recently. MEDICATIONS: Medication list reviewed per the chart record. ALLERGIES: TRAMADOL. SOCIAL HISTORY: No alcohol, no drug use. Patient smoker, age 16 to 64, one pack per day. She lives alone and is . dyspnea. FAMILY HISTORY: Noncontributory. REVIEW OF SYSTEMS: GENERAL: No weight changes. OPHTHALMOLOGIC: No double vision. ENT: No mouth ulcers. ENDOCRINE: Recent thyroid control. CARDIAC: No RI previously. PULMONARY: No asthma. IMMUNOLOGIC: No allergies. GI: No GERD. NEUROLOGIC: No obstructive sleep apnea. : No bloody urine. DERMATOLOGIC: No rash. PSYCHIATRIC: No depression. OBJECTIVE: VITAL SIGNS: Afebrile, vital signs noted reviewed per the chart record. GENERAL: In no acute distress, alert and calm in bed. HEENT: Normocephalic, atraumatic. NECK: Supple. THROAT: Midline. LUNGS: Bilateral air entry, decreased, rare rhonchi. CARDIOVASCULAR: S1, S2. No murmurs, rubs, or gallops. ABDOMEN: Soft, nontender. EXTREMITIES: No clubbing. No cyanosis. There is no edema. INTEGUMENT: No rash, no purpura. LABORATORY DATA: Labs reviewed per the chart record. IMPRESSION AND PLAN: 1. Critical coronary artery disease including 69% left main. 2. Systolic cardiomyopathy, compensated, less than 20% LV EF. 3. Chronic smoker. 4. Chronic intermittent bronchitis; possible COPD. 5. History of hiatal hernia. 6. Peripheral vascular disease, status post CEA, left. 7. Recent T12 fracture status post kyphoplasty. 8. History of thyroid abnormality. 9. Hyperlipidemia. 10. Hypertension. 11. Abnormal chest radiography, mild nonspecific cystic lung disease. Possible COPD versus other. 12. Await cardiovascular consult. Enoxaparin is given at treatment doses. Continue aspirin. Diuretics ongoing to resume but intermittent flushing with IV fluid low dose right now. Follow up closely. We may have to transfer out to [facility]. Smoking cessation is highly advised. She is discharged. We will follow up the cystic lung disease in clinic. Thank you very much, Dr. Rosenberg for this consult. Please call for questions. MD FIDELINA Sabillon/JOHN /[id number]
[2019-10-16] MEDS ORDERED: FUROSEMIDE 40 MG TAB PO SCH (09:00)
== END 2019-10-15 19:45 | disposition short-term general hospital (02) | DRG 280 ==
LOC: ER 09:03 → ERHOLD 16:34 → MED/SURG2 22:53
PROVIDERS: ADMIT Internal Medicine; ATTEND Internal Medicine
PROC: 4A023N7 Measurement of Cardiac Sampling and Pressure, Left Heart, Percutaneous Approach (ICD-10-PCS; principal; 2019-10-13)
PROC: B2111ZZ Fluoroscopy of Multiple Coronary Arteries using Low Osmolar Contrast (ICD-10-PCS; 2019-10-13)
PROC: B2151ZZ Fluoroscopy of Left Heart using Low Osmolar Contrast (ICD-10-PCS; 2019-10-13)
PROC: B240ZZ3 Ultrasonography of Single Coronary Artery, Intravascular (ICD-10-PCS; 2019-10-13)
DX: I21.4 Non-ST elevation (NSTEMI) myocardial infarction (principal); I50.23 Acute on chronic systolic (congestive) heart failure; E43 Unspecified severe protein-calorie malnutrition; I51.81 Takotsubo syndrome; R64 Cachexia; Z68.1 Body mass index [BMI] 19.9 or less, adult; K29.00 Acute gastritis without bleeding; I11.0 Hypertensive heart disease with heart failure; I25.10 Atherosclerotic heart disease of native coronary artery without angina pectoris; M81.0 Age-related osteoporosis without current pathological fracture; Z85.810 Personal history of malignant neoplasm of tongue; M48.54XD Collapsed vertebra, not elsewhere classified, thoracic region, subsequent encounter for fracture with routine healing; E78.5 Hyperlipidemia, unspecified; F17.200 Nicotine dependence, unspecified, uncomplicated; I73.9 Peripheral vascular disease, unspecified; J43.9 Emphysema, unspecified; K57.90 Diverticulosis of intestine, part unspecified, without perforation or abscess without bleeding; D35.00 Benign neoplasm of unspecified adrenal gland; K44.9 Diaphragmatic hernia without obstruction or gangrene
CPT/HCPCS: 36415; 71260; 74022; 80048; 80053; 80061; 81001; 82550; 82553; 82948; 83690; 83735; 84100; 84484; 85025; 85379; 85610; 85730; 92978; 93005; 93306; 93458; 99152; 99153; 99284; C1753; C1769; J1644; J1650; J2001; J2250; J2270; J2405; J3010; J7030; Q0162; Q9967